=== PATIENT | female | born 1995 | race African-American/Black ===

== ENCOUNTER 2024-12-08 00:55 | Emergency (ER) | payer MEDICAID, OTHER ==
[~2024-12-08] VITALS: Ht 160 cm; Wt 92.4 kg
[2024-12-08 01:28] VITALS: O2SAT 99
[2024-12-08] MEDS ORDERED: DEXAMETHASONE 10 MG/ML VIAL PO NR (03:15)
[2024-12-08] MEDS ORDERED: DEXAMETHASONE 1 MG/ML ORAL SYR PO ONE (03:15)
[2024-12-08] MEDS: KETOROLAC 30MG/ML VIAL IM ONE (03:58)
[2024-12-08] MEDS: SUMATRIPTAN SUCCINATE 6MG/0.5ML VIAL SUBCUT ONE (03:59)
[2024-12-08] MEDS: DIPHENHYDRAMINE 25MG CAPSULE PO ONE (03:59)
[2024-12-08] MEDS: PROCHLORPERAZINE MALEATE 10MG TABLET PO ONE (04:00)
[2024-12-08] MEDS: DEXAMETHASONE 4MG TABLET PO NR (04:00)
[2024-12-08] MEDS ORDERED: IBUP-1455 MT (04:27)
[2024-12-08] MEDS ORDERED: SUMA11AE2 BOTHNSTRLS (04:27)
[2024-12-08 05:23] VITALS: BP 146/77; PULSE 75; RESP 20; TEMP 36.9; O2SAT 99
== END 2024-12-08 05:36 | disposition home or self-care (01) ==
LOC: ER 00:55
DX: G43.909 Migraine, unspecified, not intractable, without status migrainosus (principal); M79.674 Pain in right toe(s); Z98.890 Other specified postprocedural states
CPT/HCPCS: 81025; 73630; 96372; 99284; J8540; Q0163; Q0164; J1885; J3030; Z7610